=== PATIENT | male | born 1975 | race Caucasian/White ===

== ENCOUNTER 2016-06-08 06:27 | Emergency (ER) | payer SELFPAY | END 2016-06-08 07:28 | disposition home or self-care (01) | LOC: ER 06:27 | DX: S80.02XA Contusion of left knee, initial encounter (principal); W22.8XXA Striking against or struck by other objects, initial encounter; Y92.009 Unspecified place in unspecified non-institutional (private) residence as the place of occurrence of the external cause; F17.210 Nicotine dependence, cigarettes, uncomplicated ==